=== PATIENT | female | born 1995 | race Caucasian/White ===

== ENCOUNTER 2017-01-09 00:29 | Emergency (ER) | payer OTHER, MEDICAID ==
[~2017-01-09] VITALS: Ht 167.6 cm; Wt 94.5 kg
[~2017-01-09 00:29] MED LIST: ACET500C5 PO; ALBU8.5H3; ONDA4TAB35 PO
[2017-01-09 00:39] VITALS: Ht 167.6 cm; Wt 94.5 kg
--- NOTE | 2017-01-09 02:31 | ERD ---
ER Documentation Chief Complaint Chief Complaint Rt chest pain x1year, BROOKS n1hrqiv. "feel worse today" HPI 21-year-old female presents to emergency department for complaints of headache for 2 years, throbbing pain, 6/10 scale, worse today. Patient also has been having right mid chest pain the last 6 months, sharp pain, 6/10 scale, not better with anything, was upon taking a deep breath. Patient denies any dizziness. Patient denies any cough. Patient denies any dyspnea on exertion or dizzy on lying down. Patient denies any nausea or vomiting. Patient denies any head injury. ROS All systems reviewed and are negative except as per history of present illness. Medications Home Meds Active Scripts Ondansetron Hcl* (Zofran* ODT) 4 mg -ODT Tab.disper, 4 MG PO Q8 Y for NAUSEA AND /OR VOMITING, #20 TAB Prov:DEILO FROST NP 09/03/14 Acetaminophen* (Tylophen*) 500 Mg Capsule, 500 MG PO Q6H Y for HEADACHE, #20 TAB Prov:GUY RAMOS MD 08/18/14 Reported Medications Albuterol Sulfate* (Proair HFA*) 8.5 Gm Hfa.aer.ad 08/07/11 Allergies Allergies: Coded Allergies: No Known Drug Allergies (Verified Allergy, Mild, 01/09/17) PMhx/Soc Medical and Surgical Hx: pt denies Surgical Hx History of Surgery: No Anesthesia Reaction: No Hx Neurological Disorder: No Hx Respiratory Disorders: No Hx Cardiac Disorders: No Hx Psychiatric Problems: Yes (panic attacks) Hx Miscellaneous Medical Probl: Yes (seasonal allergies, anemia) Hx Alcohol Use: No Hx Substance Use: No Hx Tobacco Use: No Smoking Status: Never smoker FmHx Family History: No coronary disease, No diabetes, No other Physical Exam Vitals Vital Signs Date Time Temp Pulse Resp B/P Pulse Ox O2 Delivery O2 Flow Rate FiO2 01/09/17 00:39 98.5 98 18 127/84 100 Physical Exam GENERAL: The patient is well developed and appropriate for usual state of health, in no apparent distress. CHEST: Clear to auscultation bilaterally. There are no rales, wheezes or rhonchi. Palpable mid chest tenderness. HEART: Regular rate and rhythm. No murmurs, clicks, rubs or gallops. No S3 or S4. ABDOMEN: Soft, nontender and nondistended. Good bowel sounds. No rebound or guarding. No gross peritonitis. No gross organomegaly or masses. No Martinez sign or McBurney point tenderness. BACK: No midline or flank tenderness. EXTREMITIES: Equal pulses bilaterally. There is no peripheral clubbing, cyanosis or edema. No focal swelling or erythema. Full range of motion. Grossly neurovascularly intact. NEURO: Alert and oriented. Cranial nerves 2-12 intact. Motor strength in all 4 extremities with 5/5 strength. Sensation grossly intact. Normal speech and gait. Negative Romberg sign. Negative pronator drift. SKIN: There is no apparent rash or petechia. The skin is warm and dry. HEMATOLOGIC AND LYMPHATIC: There is no evidence of excessive bruising or lymphedema. No gross cervical, axillary, or inguinal lymphadenopathy. Results 24 hrs EKG was done, read by me and is normal sinus rhythm at a rate of 82, normal axis , there is no ST changes or changes in the EKG that indicates any cardiac emergencies at this time. Patient's EKG was also reviewed by Dr. Bryant. Impression: no acute findings on EKG. PROCEDURE: Noncontrast CT Head. CLINICAL INDICATION: Pain. TECHNIQUE: Noncontrast CT of the head was obtained. The administered radiation dose was CTDI vol = 45 mGy, DLP = 720 mGy-cm. One or more of the following dose reduction techniques were used: automated exposure control, adjustment of the mA and/or kV according to patient size and/or use of iterative reconstruction technique. COMPARISON: 07/14/2014 FINDINGS: The ventricles and sulci are within normal limits. There is no acute intracranial hemorrhage or extra-axial fluid collection. There is no mass effect. No midline shift is identified. There is no loss of mcmillan-white differentiation to suggest acute infarction. The orbits are within normal limits. The paranasal sinuses and mastoid air cells are without fluid. No destructive osseous lesion is identified. IMPRESSION: No acute findings. RPTAT: HIKT .Noel Milligan MD, MD Date Time Electronically viewed and signed by .Noel Milligan MD, on 01/09/2017 03:04 .T/ CC: DELIO FROST CREDIT CARD CONTROL CLERK PROCEDURE: XR Chest. CLINICAL INDICATION: Chest pain. TECHNIQUE: AP Portable chest. COMPARISON: CR CHEST 04/06/2014; CR CHEST 11/23/2011 FINDINGS: The cardiomediastinal silhouette is normal. The aorta is normal. The lung volumes are low with compressive changes. No focal consolidation, pleural effusion or pneumothorax is seen. The osseous structures are intact. IMPRESSION: No radiographic evidence of acute cardiopulmonary disease. Timoteo Pierce Physician Date Time Electronically viewed and signed by Timoteo Pierce Physician on 01/09/2017 03: 04 CS/ CC: DELIO FROST CREDIT CARD CONTROL CLERK vertex Procedures/MDM Medical Decision Making: Patient symptoms are consistent with migraine headache , possible tension headache. There is low suspicion for neurological emergencies at this time since patients neurologic exam is normal. Patient did not have any altered level consciousness, vomiting, changes in balance or memory and did not have any head injury. Patients CT scan of the head does not show any neurological emergencies at this time. Patient strengths pain nonspecific at that time, most likely musculoskeletal pain. Palpable chest tenderness and reproducible chest tenderness. There is low suspicion for cardiopulmonary emergencies at this time. Patient has low risk factors. EKG is normal, there is no changes in the EKG that indicates cardiac emergencies. Chest X-ray does not show cardiopulmonary emergencies at this time. There is low suspicion for aortic aneurysm, myocardial infarction, pneumothorax, pleural effusion, pulmonary embolism, or any other cardiopulmonary emergencies at this time. Patient was given for Fioricet, ibuprofen, was advised to follow-up with primary care doctor in 2-3 days for reevaluation of symptoms. Patient was advised to return to emergency department for any worsening symptoms. Dispostion: Home. Stable Disclaimer: Inadvertent spelling and grammatical errors are likely due to EHR/ dictation software use and do not reflect on the overall quality of patient care. Also, please note that the electronic time recorded on this note does not necessarily reflect the actual time of the patient encounter. Dispostion: Home. Stable Disclaimer: Inadvertent spelling and grammatical errors are likely due to EHR/ dictation software use and do not reflect on the overall quality of patient care. Also, please note that the electronic time recorded on this note does not necessarily reflect the actual time of the patient encounter. Departure Diagnosis: Primary Impression: Chest wall pain Additional Impression: Head ache Headache type: unspecified Headache chronicity pattern: acute headache Intractability: not intractable Qualified Code: R51 - Acute nonintractable headache, unspecified headache type Condition: Stable Patient Instructions: Chest Wall Pain, Costochondritis, Headache, Unspecified DELIO FROST NP Jan 09, 2017 02:31
--- NOTE | 2017-01-09 03:05 | RADRPT ---
PROCEDURE: XR Chest. CLINICAL INDICATION: Chest pain. TECHNIQUE: AP Portable chest. COMPARISON: CR CHEST 04/06/2014; CR CHEST 11/23/2011 FINDINGS: The cardiomediastinal silhouette is normal. The aorta is normal. The lung volumes are low with compr essive changes. No focal consolidation, pleural effusion or pneumothorax is seen. The osseous stru ctures are intact. IMPRESSION: No radiographic evidence of acute cardiopulmonary disease. Physician Beata Date Time Electronically viewed and signed by Timoteo Pierce Physician on 01/09/2017 03:04 CS/
--- NOTE | 2017-01-09 03:05 | RADRPT ---
PROCEDURE: Noncontrast CT Head. CLINICAL INDICATION: Pain. TECHNIQUE: Noncontrast CT of the head was obtained. The administered radiation dose was CTDI vol = 45 mGy, DLP = 720 mGy-cm. One or more of the following dose reduction techniques were used: automate d exposure control, adjustment of the mA and/or kV according to patient size and/or use of iterative reconstruction technique. COMPARISON: 07/14/2014 FINDINGS: The ventricles and sulci are within normal limits. There is no acute intracranial hemorrhage or ext ra-axial fluid collection. There is no mass effect. No midline shift is identified. There is no loss of mcmillan-white differentiation to suggest acute infarction. The orbits are within normal limits. The paranasal sinuses and mastoid air cells are without fluid. No destructive osseous lesion is identified. IMPRESSION: No acute findings. RPTAT: HIKT .Noel Milligan MD, MD Date Time Electronically viewed and signed by .Noel Milligan MD, MD on 01/09/2017 03:04 .T/
[2017-01-09] MEDS ORDERED: FIORICET PO (03:34)
[2017-01-09] MEDS ORDERED: IBUP-1542 PO (03:34)
== END 2017-01-09 03:44 | disposition home or self-care (01) ==
LOC: FTE 00:29
DX: R07.89 Other chest pain (principal); R51 Headache
CPT/HCPCS: 70450; 71010; 93005

== ENCOUNTER 2018-07-31 22:42 | Emergency (ER) | payer MEDICAID, OTHER ==
[~2018-07-31] VITALS: Ht 175.3 cm; Wt 109.6 kg
[~2018-07-31 22:42] MED LIST changes: -ALBU8.5H3; +ALBU8.5H8; +FIORICET PO; +IBUP-1542 PO
[2018-07-31 22:45] VITALS: Ht 175.3 cm; Wt 109.6 kg
[2018-08-01] MEDS ORDERED: KETOROLAC 15 MG INJ IM STA (01:35)
[2018-08-01] MEDS ORDERED: IBUP-1542 PO (02:27)
[2018-08-01 03:04] VITALS: BP 118/56; PULSE 53; RESP 20
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
== END 2018-08-01 03:10 | disposition home or self-care (01) ==
LOC: FTE 22:42
DX: S16.1XXA Strain of muscle, fascia and tendon at neck level, initial encounter (principal); S06.0X0A Concussion without loss of consciousness, initial encounter; V43.52XA Car driver injured in collision with other type car in traffic accident, initial encounter
CPT/HCPCS: 81025; J1885; 96372